=== PATIENT | female | born 1980 | race American Indian/Alaskan Native ===

== ENCOUNTER 2020-10-17 16:24 | Emergency (ER) | payer SELFPAY ==
[2020-10-17] MEDS ORDERED: LIDOCAINE (1%) 10 MG/1 ML VIAL 20 ML MDV INFILTRATI ONE (22:39)
[2020-10-17] MEDS ORDERED: IBUPROFEN 800 MG TAB PO ONE (22:39)
[2020-10-17] MEDS ORDERED: TETANUS,DIPH,PERTUSS(ACELL) VACCINE 0.5 ML SYRINGE IM ONE (22:39)
[2020-10-17] MEDS ORDERED: ACETAMINOPHEN 500 MG TAB PO ONE (22:40)
[2020-10-18 00:19] VITALS: BP 137/89
--- NOTE | 2020-10-18 00:21 | Emergency Department Report ---
Upper Extremity - HPI Chief Complaint: Laceration/Recheck/Suture Stated Complaint: FINGER LACERATION Upper Extremity: Left Thumb (distal left thumb laceration and pain) Occurred When: Today Mechanism: Other (laceration) Symptoms: Yes Pain with Movement, Yes Laceration or Abrasion (distal left thumb), No Deformity, No Limited Range of Movement, No Weakness Other History: Patient is a 40-year-old -[place] female with no past medical history presents to the ED with complaint of acute onset persistent painful bleeding distal left thumb laceration after she accidentally cut the distal left arm pain cutting meat about 4 hours ago. Patient states that she is not up-to-date with her tetanus vaccinations. Patient states that the bleeding has been persistent but is now well controlled. Patient denies numbness and tingling or weakness of left arm, chest pain or shortness of breath, fall, syncope, dizziness, nausea and vomiting. ED Review of Systems ROS: Stated complaint: FINGER LACERATION Other details as noted in HPI Constitutional: denies: chills, fever Eyes: denies: eye pain, eye discharge, vision change ENT: denies: ear pain, throat pain Respiratory: denies: cough, shortness of breath, wheezing Cardiovascular: denies: chest pain, palpitations Endocrine: no symptoms reported Gastrointestinal: denies: abdominal pain, nausea, diarrhea Genitourinary: denies: urgency, dysuria, discharge Musculoskeletal: arthralgia (Distal left thumb laceration with pain), myalgia. denies: back pain, joint swelling Skin: other (Distal left thumb laceration). denies: rash, lesions Neurological: denies: headache, weakness, paresthesias Psychiatric: denies: anxiety, depression Hematological/Lymphatic: denies: easy bleeding, easy bruising ED Past Medical Hx - Past Medical History Previous Medical History?: No - Surgical History Past Surgical History?: No - Medications Home Medications: Home Medications Medication Instructions Recorded Confirmed Last Taken Type Ibuprofen [Motrin] 800 mg PO Q8HR PRN #24 tablet 10/18/20 Unknown Rx cephALEXin [Keflex] 500 mg PO Q12HR #20 cap 10/18/20 Unknown Rx Upper Extremity Exam - Exam General: Vital signs noted. No distress. Alert and acting appropriately. Head and Torso: No HEENT Abnormality, No Neck Tenderness, No Chest/Lungs Abnormality, No Abdominal Tenderness, No Back Tenderness Shoulder Exam: Yes Normal Range of Motion in Shoulder, No Shoulder Tenderness, No Clavicle Tenderness, No Shoulder Deformity, No AC Joint Tenderness Arm Exam: No Arm/Humerus Tenderness, No Arm Deformity Elbow: Yes Normal Range of Motion in Elbow, No Elbow Tenderness, No Elbow Deformity Forearm: No Forearm Tenderness, No Forearm Deformity, No Pain with Pronation, No Pain with Supination Wrist: Yes Normal ROM in Wrist, No Wrist Tenderness, No Wrist Deformity, No Snuffbox Tenderness, No Pain with Axial Thumb Compression Hand: Yes Digit Tenderness (distal left thumb laceration duue to laceration), Yes Normal ROM in Digit(s), No Hand Tenderness, No Hand Deformity, No Digit(s) Deformity, No Tendon Dysfunction CMS Exam: Yes Broken Skin (distal left thumb laceration), Yes Normal Distal Pulses, Yes Normal Capillary Refill, Yes Normal Distal Sensation - Laceration /Wound Repair Left Distal Finger Wound Location: upper extremity (Distal left thumb laceration) Wound Length (cm): 2 Wound's Depth, Shape: superficial, flap Wound Explored: contaminated Irrigated w/ Saline (ccs): 100 Betadine Prep?: Yes Anesthesia: 1% Lidocaine Volume Anesthetic (ccs): 3 Wound Debrided: extensive Wound Repaired With: sutures Suture Size/Type: 4:0, proline Number of Sutures: 4 Layer Closure?: No Sterile Dressing Applied?: Yes Progress: Distal left thumb laceration was cleaned thoroughly and a total of 3 cc lidocaine 1% solution was infiltrated in the area for local anesthesia. When anesthesia was fully achieved, the wound was then sutured per protocol and the patient tolerated procedure well. The wound was then dressed appropriately. ED Medical Decision Making - Medical Decision Making This is a 40-year-old -[place] female with no past medical history presents to the ED with complaint of acute onset persistent painful bleeding distal left thumb laceration after she accidentally cut the distal left arm pain cutting meat about 4 hours ago. Patient states that she is not up-to-date with her tetanus vaccinations. Patient states that the bleeding has been persistent but is now well controlled. In the ED, patient is alert and oriented x3 and is not in any distress. Patient was treated for pain in the ED and also given booster tetanus vaccination. Distal left thumb laceration was cleaned thoroughly and a total of 3 cc lidocaine 1% solution was infiltrated in the area for local anesthesia. When anesthesia was fully achieved, the wound was then sutured per protocol and the patient tolerated procedure well. The wound was then dressed appropriately and the patient will discharge home on medications including antibiotic and pain medications. Patient was advised return to the ED immediately if symptoms get worse, otherwise return to the ED or to her primary care physician in 12 to 14 days for suture removal. - Differential Diagnosis Thumb laceration; thumb contusion; thumb abrasion Critical care attestation.: If time is entered above; I have spent that time in minutes in the direct care of this critically ill patient, excluding procedure time. ED Disposition Clinical Impression: Laceration of left thumb without complication Qualifiers: Encounter type: initial encounter Qualified Code(s): S61.012A - Laceration without foreign body of left thumb without damage to nail, initial encounter Disposition: TO HOME OR SELFCARE Is pt being admited?: No Does the pt Need Aspirin: No Condition: Stable Instructions: Laceration Care, Adult, [id number], Sutured Wound Care, Eas y-to-Read Additional Instructions: Take medication with food, drink plenty of fluids and follow-up with your primary care physician in 7 to 10 days for reevaluation. Return to the ED immediately if symptoms get worse. Otherwise return to the ED in 12 to 14 days for suture removal. Prescriptions: cephALEXin [Keflex] 500 mg PO Q12HR #20 cap Ibuprofen [Motrin] 800 mg PO Q8HR PRN #24 tablet PRN Reason: Pain , Severe (7-10) Referrals: [facility] [Provider Group] - 7-10 days Time of Disposition: 00:25 Print Language: MEXICAN
== END 2020-10-18 00:40 | disposition home or self-care (01) ==
LOC: ED 16:24
DX: S61.012A Laceration without foreign body of left thumb without damage to nail, initial encounter (principal); Z79.899 Other long term (current) drug therapy; W26.0XXA Contact with knife, initial encounter; Y93.89 Activity, other specified; Y92.89 Other specified places as the place of occurrence of the external cause; Y99.8 Other external cause status
CPT/HCPCS: 90471; 90715; 99282